=== PATIENT | male | born 1960 | race Caucasian/White ===

== ENCOUNTER 2018-10-08 20:23 | Emergency (ER) | payer OTHER ==
[~2018-10-08] VITALS: Ht 188 cm; Wt 95.9 kg
[2018-10-08 20:27] VITALS: BP 127/82
--- NOTE | 2018-10-08 20:29 | NUR ---
TO LOBBY A/W BED AMBULATORY
--- NOTE | 2018-10-08 20:36 | NUR ---
AMBULATED TO ER BED 1
--- NOTE | 2018-10-08 20:46 | NUR ---
PT CAME TO ER C/O OF SHORTNESS OF BREATH. RESPIRATIONS ARE EVEN AND UNLABORED. BREATH SOUNDS IN UPPER AIRWAY HAS SLIGHT WHEEZING ON EXPIRATORY. O2 SATURATION AT 95% ON ROOM AIR. PT TAKES ALBUTEROL 1 PUFF QD AT 8AM. PER PT HE TOOK HIS EMERGENCY INHALER AROUND 1940. VSS. MED HX: ASTHMA. SAFETY MEASURES IN PLACE. IMMANUELD MADE AWARE.
[2018-10-08] MEDS ORDERED: ALBUTEROL SULFATE/IPRATROPIU 3 ML SOL IH ONE (21:20)
[2018-10-08] MEDS ORDERED: methylPREDNISolone SS 125 MG/2 ML VIAL IM ONE (21:20)
--- NOTE | 2018-10-08 21:40 | NUR ---
PT RESTING IN BED COMFORTABLY IN HIGH FOWLERS POSITION. OXYGEN SATURATION 95% ON RA. WILL CONTINUE TO MONITOR.
--- NOTE | 2018-10-08 22:10 | NUR ---
PER PT HE FEELS ALOT BETTER, DOES NOT FEEL SHORT OF BREATH ANYLONGER..
[2018-10-08 22:15] VITALS: BP 127/82
--- NOTE | 2018-10-08 22:15 | NUR ---
Patient discharged with v/s stable. Written and verbal after care instructions given and explained. Patient alert, oriented and verbalized understanding of instructions. Ambulatory with steady gait. All questions addressed prior to discharge. ID band removed. Patient advised to follow up with PMD. Rx of PREDNISONE AND ALBUTEROL WAS given. Patient educated on indication of medication including possible reaction and side effects. Opportunity to ask questions provided and answered.
== END 2018-10-08 22:15 | disposition home or self-care (01) ==
LOC: MED 20:23
DX: J45.901 Unspecified asthma with (acute) exacerbation (principal)
CPT/HCPCS: 96372; 99283; J2930; J7620; 94640

== ENCOUNTER 2019-09-18 13:12 | Emergency (ER) | payer OTHER ==
[~2019-09-18] VITALS: Ht 188 cm; Wt 90.7 kg
[2019-09-18 13:25] VITALS: BP 116/55
[2019-09-18 14:45] VITALS: BP 118/61
== END 2019-09-18 14:46 | disposition home or self-care (01) ==
LOC: MED 13:12
DX: J45.901 Unspecified asthma with (acute) exacerbation (principal); J44.9 Chronic obstructive pulmonary disease, unspecified
CPT/HCPCS: 71045; 99283; Q0092

== ENCOUNTER 2021-06-16 06:38 | Emergency (ER) | payer OTHER ==
[~2021-06-16] VITALS: Ht 188 cm; Wt 97.5 kg
[2021-06-16 06:44] VITALS: BP 125/84
[2021-06-16] MEDS ORDERED: ALBUTEROL 0.083% 2.5 MG/3 ML NEBU INH ONE (06:55)
[2021-06-16] MEDS ORDERED: IPRATROPIUM 0.02% 0.5 MG/2.5 ML NEBU INH ONE (06:55)
[2021-06-16 08:03] VITALS: BP 125/84
== END 2021-06-16 08:04 | disposition home or self-care (01) ==
LOC: MED 06:38
DX: B34.9 Viral infection, unspecified (principal); J44.9 Chronic obstructive pulmonary disease, unspecified
CPT/HCPCS: 71045; 93005; 94640; 99283; J7613; J7644